=== PATIENT | female | born 1970 ===

== ENCOUNTER 2017-05-14 00:14 | Emergency (ER) | payer MEDICAID ==
[2017-05-14 00:30] VITALS: TEMP 97.8
--- NOTE | 2017-05-14 01:16 | ED PDOC ---
Arrival/HPI - General Historian: Patient, Spouse - History of Present Illness Time/Duration: 4-6 hours Symptom Onset: Sudden Symptom Course: Worsening Quality: Aching Severity Level: 5 Activities at Onset: Rest, Light Context: Home - General Chief Complaint: Medical Clearance Time Seen by Provider: 05/14/17 00:18 - History of Present Illness Narrative History of Present Illness (Text): 05/14/17 01:08 Mrs. 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 Patient states that at around 1700 today she was hanging her coat when she fell backwards landing on her left leg but also hitting the back of her head and neck. Patient reports pain on her left leg and an associated bruise. She reports that the pain was initially well managed with two ibuprofen but that the pain has gotten worse since that time. She endorses neck pain and associated headache but notes that this pain is only mild, rating it a 3 on a scale of 1-10. Patient denies fever, chills, changes in her vision, periods of confusion, epistaxis, chest pain, palpitations, SOB, cough, abdominal pain, N/V/ D/C, burning with urination or any numbness/tingling/weakness of any extremity. (Felipe Little) Past Medical History - Provider Review Nursing Documentation Reviewed: Yes - Travel History Have you recently traveled outside [place] w/in the past 3 mons?: No - Past History Past History: No Previous - Infectious Disease Hx of Infectious Diseases: None - Tetanus Immunization Tetanus Immunization: Unknown - Psychiatric Hx Substance Use: No Family/Social History - Physician Review Nursing Documentation Reviewed: Yes Family/Social History: No Known Family HX Smoking Status: Never Smoked Hx Alcohol Use: No Hx Substance Use: No Allergies/Home Meds Allergies/Adverse Reactions: Allergies No Known Allergies Allergy (Verified 05/14/17 00:26) Review of Systems - Physician Review All systems were reviewed & negative as marked: Yes - Review of Systems Constitutional: Normal. absent: Fevers, Night Sweats Eyes: Normal. absent: Vision Changes ENT: Normal Respiratory: Normal. absent: SOB, Cough Cardiovascular: Normal. absent: Chest Pain, Palpitations Gastrointestinal: Normal. absent: Abdominal Pain, Constipation, Diarrhea, Nausea, Vomiting Genitourinary Female: Normal. absent: Dysuria, Frequency Musculoskeletal: Neck Pain, Myalgias (Pain in her left leg). absent: Normal, Arthralgias, Back Pain, Joint Swelling Skin: Other (Bruise on her left thigh). absent: Normal Neurological: Headache (Associated with neck pain radiating to her forehead). absent: Normal, Dizziness, Focal Weakness, Gait Changes, Disequilibrium Endocrine: Normal Hemo/Lymphatic: Normal Psychiatric: Normal Physical Exam Vital Signs Reviewed: Yes Temperature: Afebrile Blood Pressure: Normal Pulse: Regular Respiratory Rate: Normal Appearance: Positive for: Well-Appearing, Non-Toxic, Comfortable Pain Distress: None Mental Status: Positive for: Alert and Oriented X 3 - Systems Exam Head: Present: Atraumatic, Normocephalic Pupils: Present: PERRL Extroacular Muscles: Present: EOMI Conjunctiva: Present: Normal Mouth: Present: Moist Mucous Membranes Neck: Present: Normal Range of Motion, Paraspinal Tenderness (Bilaterally ), Trachea Midline. No: Meningeal Signs, MIDLINE TENDERNESS, JVD, Lymphadenopathy , Bruit Respiratory/Chest: Present: Clear to Auscultation, Good Air Exchange. No: Respiratory Distress, Accessory Muscle Use, Wheezes, Decreased Breath Sounds, Rales, Retracting, Rhonchi, Tachypneic, Tender to Palpation Cardiovascular: Present: Regular Rate and Rhythm, Normal S1, S2, Peripheal Pulses Present. No: Murmurs, Irregular Rhythm, Tachycardic, Bradycardic Abdomen: Present: Normal Bowel Sounds. No: Tenderness, Distention, Peritoneal Signs Back: Present: Normal Inspection. No: CVA Tenderness, Midline Tenderness, Paraspinal Tenderness, Pain with Leg Raise Upper Extremity: Present: Normal Inspection. No: Cyanosis, Edema Lower Extremity: Present: NORMAL PULSES, Normal ROM, Tenderness (To left upper thigh), Neurovascularly Intact, Capillary Refill < 2 s. No: Normal Inspection, Edema, CALF TENDERNESS, Cyanosis, Mando's Sign, Swelling, Erythema, Deformity, Temperature Abnormalties Neurological: Present: GCS=15, CN II-XII Intact, Speech Normal Skin: Present: Warm, Dry, Normal Color, Other (Contusion on left thigh measuring approximately 5-6cm). No: Rashes Lymphatic: No: Cervical Adenopathy Psychiatric: Present: Alert, Oriented x 3, Normal Insight, Normal Concentration Vital Signs Temp Pulse Resp BP Pulse Ox 05/14/17 02:15 79 16 105/54 L 99 05/14/17 00:27 97.8 F 73 18 106/73 100 Medical Decision Making - RAD Interpretation Clothes Separator: ED Physician, Radiologist ED Course and Treatment: Patient Seen With Resident: In agreement with resident note which contains more details about the patient. Patient was seen and evaluated with resident. Came up with plan and treatment together. A 46 year old female s/p fall with left leg pain, neck pain and headache. Additional HPI as noted by resident. On physical exam, patient has paraspinal tenderness of neck bilaterally, trachea midline, normal range of motion. Patient also has left upper thigh tenderness and about a 5-6 cm contusion on left thigh. Ordered CT head, CT spine and Radiology of left femur. Will give patient Ultram. 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 Plan: -CT Head and CT Cervical Spine w/o contrast -Left femur X-Ray -Tramadol 50mg PO STAT for pain control -Reassess and disposition Prior Visits: No previous visits 05/14/17 02:43 (Felipe Little) - RAD Interpretation Radiology Orders: 05/14/17 00:35 CERVICAL SPINE W/O CONTRAST [CT] Stat HEAD W/O CONTRAST [CT] Stat FEMUR 1 VIEW LT [RAD] Stat - Medication Orders Current Medication Orders: Discontinued Medications Tramadol HCl (Ultram) 50 mg PO STAT STA Stop: 05/14/17 01:09 Last Admin: 05/14/17 01:13 Dose: 50 mg PITER Pain Assessment Document 05/14/17 01:13 CNR (Rec: 05/14/17 01:14 CNR [id number]) Pain Reassessment Is this a pain reassessment? Yes Disposition/Present on Arrival - Present on Arrival Any Indicators Present on Arrival: No History of DVT/PE: No History of Uncontrolled Diabetes: No Urinary Catheter: No History of Decub. Ulcer: No History Surgical Site Infection Following: None - Disposition Have Diagnosis and Disposition been Completed?: Yes Disposition Time: 01:57 Patient Plan: Discharge - Disposition Diagnosis: Fall Disposition: HOME/ ROUTINE Condition: GOOD Discharge Instructions (ExitCare): Head Injury (ED), Contusion in Adults (ED), Fall Prevention (ED) Additional Instructions: Mrs. Jesus Almazan, thank you for letting us take care of you today. Your provider was Dr. Dewitt. You were treated for fall and leg contusion. The emergency medical care you received today was directed at your acute symptoms. If you were prescribed any medication, please fill it and take as directed. It may take several days for your symptoms to resolve. Return to the Emergency Department if your symptoms worsen, do not improve, or if you have any other problems. Please contact your doctor or call one of the physicians/clinics you have been referred to that are listed on the Patient Visit Information form that is included in your discharge packet. Bring any paperwork you were given at discharge with you along with any medications you are taking to your follow up visit. Our treatment cannot replace ongoing medical care by a primary care provider (PCP) outside of the emergency department. Thank you for allowing the [facility] team to be part of your care today. Prescriptions: traMADol [Ultram] 50 mg PO TID #10 tab Forms: [employer] (Malay), WORK NOTE
--- NOTE | 2017-05-14 01:42 | CT ---
EXAM: CT Head Without Intravenous Contrast CLINICAL HISTORY: 46 years old, female; Injury or trauma; Fall; Initial encounter; Concussion / head injury TECHNIQUE: Axial computed tomography images of the head/brain without intravenous contrast. All CT scans at this facility use one or more dose reduction techniques, viz.: automated exposure control; ma/kV adjustment per patient size (including targeted exams where dose is matched to indication; i.e. head); or iterative reconstruction technique. COMPARISON: No relevant prior studies available. FINDINGS: Brain: No acute intracranial hemorrhage. No significant white matter disease. No edema. Ventricles: No significant ventriculomegaly. Bones: No acute displaced fracture. Sinuses: Unremarkable as visualized. No acute sinusitis. Mastoid air cells: Unremarkable as visualized. No mastoid effusion. IMPRESSION: No acute intracranial hemorrhage, or suspicious mass effect.
--- NOTE | 2017-05-14 01:44 | CT ---
EXAM: CT Cervical Spine Without Intravenous Contrast CLINICAL HISTORY: 46 years old, female; Injury or trauma; Fall; Initial encounter; Sprain or strain, cervical ligaments; Additional info: Fall/neck pain TECHNIQUE: Axial computed tomography images of the cervical spine without intravenous contrast. All CT scans at this facility use one or more dose reduction techniques, viz.: automated exposure control; ma/kV adjustment per patient size (including targeted exams where dose is matched to indication; i.e. head); or iterative reconstruction technique. Coronal and sagittal reformatted images were created and reviewed. COMPARISON: No relevant prior studies available. FINDINGS: Vertebrae: No acute fracture. Alignment: Straightening and slight reversal of the normal curvature of the cervical spine, possibly muscular in origin. Discs/spinal canal/neural foramina: No acute findings. Soft tissues: Symmetric Lung apices: The visualized lung apices are clear. IMPRESSION: No acute fracture.
[2017-05-14 02:16] VITALS: BP 105/54; PULSE 79; RESP 16; O2SAT 99
--- NOTE | 2017-05-14 08:22 | RAD ---
PROCEDURE: HISTORY: Fall/leg pain/bruise COMPARISON: None TECHNIQUE: Three views FINDINGS: Normal bone mineralization. Superolateral hip joint space narrowing. The medial femoral tibial joint space also appears narrowed. IMPRESSION: No fracture or dislocation. No lytic lesions. Mild degenerative changes
== END 2017-05-14 02:16 | disposition home or self-care (01) ==
LOC: MERGE 00:14 → ED 00:14
DX: M54.2 Cervicalgia (principal); R51 Headache; M79.605 Pain in left leg